=== PATIENT | male | born 1945 | race Caucasian/White ===

== ENCOUNTER 2020-06-21 05:47 | Inpatient (IN) | payer OTHER ==
[2020-06-13 12:07] VITALS: BMI 32.7
--- OUTSIDE RECORDS SUMMARY | 2020-06-21 05:50 | XMS ---
:1945 Author Organization [facility] Support Name Relationship Address Phone RE Unavailable Unavailable Unavailable DAVID LAIRD [address] [place] [address] Re-disclosure Warning The records that you are about to access may contain information from federally- assisted alcohol or drug abuse programs. If such information is present, then the following federally mandated warning applies: This information has been disclosed to you from records protected by federal confidentiality rules (42 CFR part 2). The federal rules prohibit you from making any further disclosure of this information unless further disclosure is expressly permitted by the written consent of the person to whom it pertains or as otherwise permitted by 42 CFR part 2. A general authorization for the release of medical or other information is NOT sufficient for this purpose. The Federal rules restrict any use of the information to criminally investigate or prosecute any alcohol or drug abuse patient.The records that you are about to access may contain highly sensitive health information, the redisclosure of which is protected by Article 27-F of the [facility] Public Health law. If you continue you may haveaccess to information: Regarding HIV / AIDS; Provided by facilities licensed or operated by the [facility] Office of Mental Health; or Provided by the [facility] Office for People With Developmental Disabilities. If such information is present, then the following [facility] mandated warning applies: This information has been disclosed to you from confidential records which are protected by state law. State law prohibits you from making any further disclosure of this information without the specific written consent of the person to whom it pertains, or as otherwise permitted by law. Any unauthorized further disclosure in violation of state law may result in a fine or usp sentence or both. A general authorization for the release of medical or other information is NOT sufficient authorization for further disclosure. Insurance Providers Payer name Policy type Policy ID Covered Covered democrat's Policy P alexander / Coverage democrat ID relationship to [employer] ormation type [employer] H[employer] MEDICARE [id number] 1 Results ID Date Data Source [id number] 06/17/2020 10:45:00 AM EDT [facility] Name Value Range Interpretation Description Data Sup porting Code Source(s) Document(s ) SARS [facility] coronavirus 2 RNA This lab was ordered by NATOINETTE LIAO and reported by [facility]. Procedure
[2020-06-21] MEDS ORDERED: CELECOXIB 200 MG CAPSULE PO ONE (06:29)
[2020-06-21] MEDS ORDERED: TRANEXAMIC ACID 1000 MG/10 ML VIAL IVPUSH ONE (06:29)
[2020-06-21] MEDS ORDERED: CEFAZOLIN 3 GM in DEXTROSE 5%-WATER - 100 ML IVPB ONE (06:29)
[2020-06-21] MEDS ORDERED: CELECOXIB 200 MG CAPSULE ONE (06:39)
[2020-06-21] MEDS ORDERED: VANCOMYCIN 1,000 MG VIAL (RESTRICTED TO ID ONLY) ONE (07:04)
[2020-06-21] MEDS ORDERED: BUPIVACAINE LIPOSOME/PF (EXPAREL) 266 MG/20 ML VIAL ONE (07:05)
[2020-06-21] MEDS ORDERED: BUPIVACAINE HCL/PF 0.5% (5 MG/ML) 30 ML VIAL IJ ONE (07:05)
[2020-06-21] MEDS ORDERED: MIDAZOLAM HCL 2 MG/2 ML SINGLE DOSE VIAL ONE (07:05)
[2020-06-21] MEDS ORDERED: SODIUM CHLORIDE 0.9% P/F 10 ML VIAL IJ ONE (07:05)
[2020-06-21] MEDS ORDERED: BUPIVACAINE HCL/PF 0.5% (5MG/ML) 10 ML VIAL ONE (07:53)
[2020-06-21] MEDS ORDERED: ceFAZolin SODIUM 1 GM VIAL ONE ×4 (07:57→23:35)
[2020-06-21] MEDS ORDERED: ONDANSETRON 4 MG/2 ML VIAL IVPUSH PRN (07:59)
[2020-06-21] MEDS ORDERED: MAG HYDROX/AL HYDROX/SIMETH 30 ML UNIT-DOSE CUP PO PRN (07:59)
[2020-06-21] MEDS ORDERED: MAGNESIUM HYDROX 2400MG/30ML ORAL SUSPENSION 30 ML CUP PO PRN (07:59)
[2020-06-21] MEDS ORDERED: LACTATED RINGERS SOLUTION 1,000 ML IV SCH (08:00)
--- NOTE | 2020-06-21 08:01 | HP ---
[facility]ellite [facility] - Chief Complaint Chief Complaint: right knee pain - Past Medical History Allergies/Adverse Reactions: Allergies Allergy/AdvReac Type Severity Reaction Status Date / Time Penicillins Allergy Severe Low Blood Verified 06/13/20 11:53 Pressure - Current Medications Current Medications: Home Medications Medication Instructions Recorded Aspirin [ASA -] 81 mg PO DAILY 06/13/20 Atorvastatin Ca [Lipitor] 40 mg PO HS 06/13/20 Ferrous Sulfate 325 mg PO DAILY 06/13/20 Lisinopril [Prinivil] 10 mg PO DAILY 06/13/20 Metoprolol Succinate 25 mg PO DAILY 06/13/20 Satellite Physical Exam - Physical Examination Vital Signs: Vital Signs Period Temp Pulse Resp BP Sys/Jennings Pulse Ox Last 24 Hr 98.2 F 60 18 139/76 100 General Appearance: Well Nourished, Well Developed, Alert & Oriented x3 ENT: Clear Lung: Normal air movement Extremities: Other (right knee- + swelling, + ttp, decr rom, nvi, xrays show grade 4 tricompartmental djd) Neurological: Intact, Alert, Oriented Satellite Impression/Plan - Impression/Plan Impression: right knee djd Operative Procedure: right brendon tkr Date to be Performed: 06/21/20
[2020-06-21] MEDS ORDERED: TRANEXAMIC ACID 1000 MG/10 ML VIAL ONE ×2 (08:28→09:43)
[2020-06-21] MEDS ORDERED: VANCOMYCIN 1,000 MG VIAL (RESTRICTED TO ID ONLY) IVPB ONE (10:04)
--- NOTE | 2020-06-21 10:09 | OP ---
Operative Note - Note: Operative Date: 06/21/20 (thai) Pre-Operative Diagnosis: right knee djd Operation: right brendon tkr Post-Operative Diagnosis: Same as Pre-op Surgeon: Esequiel Palacios Chemical Test Engineer: Pa Ramos Anesthesiologist/CROSSING TENDER: Liliana Sandoval Anesthesia: Spinal, Local Specimens Removed: bone fragments Estimated Blood Loss (mls): 200
[2020-06-21] MEDS ORDERED: oxyCODONE HCL 5 MG TABLET ONE (12:33)
[2020-06-21] MEDS ORDERED: oxyCODONE HCL 5 MG TABLET PO PRN ×2 (12:54→14:45)
[2020-06-21] MEDS ORDERED: ACETAMINOPHEN 1000 MG/100 ML VIAL (NON FORMULARY) IVPB PRN (12:55)
[2020-06-21] MEDS ORDERED: oxyCODONE HCL 5 MG TABLET PO ONE (13:00)
[2020-06-21] MEDS: LISINOPRIL 10 MG TABLET PO SCH (13:17)
[2020-06-21] MEDS: FERROUS SO4 325 MG TABLET (FP) PO SCH (13:17)
[2020-06-21] MEDS: MULTIVITAMINS (DAILY MVI) TABLET (FP) PO SCH (13:17)
[2020-06-21] MEDS: SENNOSIDES/DOCUSATE COMBO (SENNA PLUS) TABLET (UD) PO SCH ×2 (13:17→21:29)
[2020-06-21] MEDS: PANTOPRAZOLE 40 MG TABLET PO SCH (13:17)
[2020-06-21] MEDS: metoPROLOL SUCCINATE 25 MG TAB.SR.24H (FP) PO SCH (13:18)
--- NOTE | 2020-06-21 14:40 | SPEC ---
DATE OF OPERATION: 06/21/2020 PREOPERATIVE DIAGNOSIS: Degenerative joint disease, right knee. POSTOPERATIVE DIAGNOSIS: Degenerative joint disease, right knee. PROCEDURE: Right total knee replacement with robotic-assisted navigation (MAKOplasty). SURGICAL ATTENDING: Esequiel Palacios MD BLOCKER AND POLISHER GOLD WHEEL: NILDA Zamora ANESTHESIA: Regional and spinal. CLOSURE: A Triathlon knee system with a 6 femur, 7 tibia, 9 polyethylene TS insert, a 35 patella and a 50 mm extension to the tibial tray, number 1 Vicryl fascia, 0 and 2-0 subcutaneous, 3-0 Monocryl subcuticular with skin glue for skin, 4-0 undyed Vicryl for pin sites. ESTIMATED BLOOD LOSS: Negligible. TOURNIQUET TIME: Approximately 24 minutes. COMPLICATIONS: None. CONDITION: To recovery room in stable condition. DESCRIPTION OF OPERATIVE PROCEDURE: Patient was taken to the operating room on June 21, 2020. Regional and general anesthesia was administered by the anesthesiologist. IV Kefzol and TXA were administered by the anesthesiologist. Well-padded pneumatic tourniquet was placed on the proximal thigh. The right lower extremity was prepped and draped in the usual sterile fashion. The leg was exsanguinated with an Esmarch bandage, and tourniquet was inflated to 275 mmHg. A 12 to 15-cm longitudinal midline incision was incised while centered over the patella. The dissection was carried down to the level of the extensor mechanism with sufficient flaps made to adequately perform the procedure. A medial parapatellar arthrotomy was then performed. We made a cuff of tissue on the patella for later closure. The patella was inverted, the knee was flexed up. The fat pad was excised. The subperiosteal dissection was on the anteromedial proximal tibia around towards the direction of the MCL. The ACL and the PCL were transected and debrided. The meniscal remnants of the medial and lateral meniscus were debrided and removed. This allowed the knee to be able to "be brought forward." The checkpoints were malleted into the tibia and into the femur. Two threaded pins were drilled anteroposteriorly proximal to the knee through the previous incision, through the anterior cortex, then just engaging the posterior cortex. To these pins was assembled the femoral navigation array. One handbreadth below the tibial tubercle, 2 stab incisions were used to drill 2 threaded pins in parallel fashion into the tibia, again through the anterior cortex and just engaging the posterior cortex. To these pins was fastened the tibial arrays. The knee was then registered with the navigation device with center of rotation of the hip, medial and lateral malleoli, both checkpoints, and multiple points on both the femur and the tibia to ensure excellent registration. The navigation device was directed off the "top of the bubbles" on both the femur and the tibia. The navigation passed within less than 0.5 mm to plan. The knee was then thoroughly inspected to remove all osteophytes both medially, laterally, and on the femur and the tibia, and whatever osteophytes were available for dissection. The knee was then taken to extension and to flexion, and stressed in both varus and valgus to assess flexion gaps. The virtual position of the components on the navigation device were then manipulated to optimize the position and to ensure equal gaps in both flexion and extension, and both medially and laterally. The robot was then brought into the field and was registered. The cuts were then made both on the femur and on the tibia as to plan. All osteophytes posteriorly were then removed as well. The gaps were then measured again in flexion and extension to be equal in both flexion and extension and medial and laterally. The femoral notch was then made, as we were doing a posterior stabilizing component, with the appropriate sized box. Trial reduction of the femur achieved excellent [id number] fit. A tibial baseplate of appropriate polyethylene thickness was "floated in the knee." It was ensured to be in the excellent position by navigation devices and was pinned in place. The knee was taken through a range of motion, and found to have excellent stability throughout flexion and extension. The patella was calibrated for thickness and osteotomized down to the appropriate level. The appropriate lollipop was used to drill the lug holes in the patella and the trial button was applied. The knee was taken through a range of motion and found to have excellent tracking of the patella, and patella from full extension to full flexion. Trial components were removed, the keel was punched and drilled, and a sclerotic bone on the tibia was drilled to help with cement interdigitation. The knee was thoroughly irrigated with the pulse antibiotic washer operator. The real components were then cemented in using monitored arrangement cement techniques with antibiotic cement, and pressurization and extension. After the cement was hardened, the knee was thoroughly inspected to remove any extra cement. The real polyethylene component was then clipped into place. Range of motion, stability, and tracking were as described earlier. The checkpoints and the pins were removed. The knee was thoroughly irrigated with antibiotic irrigation. Vancomycin powder was placed into the knee for antibiotic prophylaxis. The medial parapatellar arthrotomy was then closed using number 1 Vicryl interrupted suture. After closure of the deep layer, the knee was taken through a range of motion, and found to have excellent stability of the patella with no dislocation and no undue tension on the repair. The subcutaneous was pulse antibiotic irrigated, and was then closed with 2-0 Vicryl, 3-0 Monocryl subcuticular with the skin glue for the skin. The distal tibial pin site was irrigated thoroughly as well and then closed with 4-0 undyed Vicryl. A sterile Aquacel dressing was applied, followed by a De León dressing. Tourniquet was deflated. Total tourniquet time was approximately 24 minutes. No complications. Patient was awakened from anesthesia and transferred to recovery room in stable condition. Postoperative x-rays revealed excellent position of the components. Morteza [id number]
[2020-06-21] MEDS ORDERED: DEXTROSE 5%-WATER 100 ML IVPB ONE ×2 (14:43→23:35)
[2020-06-21] MEDS ORDERED: HYDROmorphone HCL 0.5 MG/0.5 ML SYRINGE IVPB PRN (14:47)
[2020-06-21] MEDS ORDERED: KETOROLAC TROMETHAMINE 30 MG/1 ML VIAL IVPUSH ONE (15:00)
[2020-06-21] MEDS: CEFAZOLIN 3 GM in DEXTROSE 5%-WATER 100 ML IVPB SCH ×2 (15:34→23:40)
[2020-06-21] MEDS ORDERED: HYDROmorphone HCl 2 MG/ML VIAL IVPB PRN (16:31)
[2020-06-21] MEDS ORDERED: ATORVASTATIN CA 40 MG TABLET (FP) PO SCH (22:00)
[2020-06-21] MEDS: oxyCODONE HCL 5 MG TABLET PO PRN (22:26)
[2020-06-22] MEDS: oxyCODONE HCL 5 MG TABLET PO PRN ×3 (03:16→10:35)
[2020-06-22 06:24] VITALS: BP 147/81; PULSE 76; TEMP 98.3
[2020-06-22] MEDS ORDERED: ASPIRIN 325 MG TABLET PO SCH (08:00)
[2020-06-22 08:55] LABS: HEMATOCRIT 33.9 % (35.4-49); HEMOGLOBIN 11.2 GM/dl (11.7-16.9); MCH 32.5 pg (25.7-33.7); MEAN CELL VOLUME 98.4 fl (80-96); MEAN PLT VOLUME 7.5 fl (7.5-11.1); PLATELET COUNT 251 K/MM3 (134-434); RBC 3.45 M/mm3 (4.00-5.60); WHITE BLOOD COUNT 8.3 K/mm3 (4.0-10.8)
[2020-06-22] MEDS: MULTIVITAMINS (DAILY MVI) TABLET (FP) PO SCH (09:20)
[2020-06-22] MEDS: FERROUS SO4 325 MG TABLET (FP) PO SCH (09:20)
[2020-06-22] MEDS: LISINOPRIL 10 MG TABLET PO SCH (09:20)
[2020-06-22] MEDS: PANTOPRAZOLE 40 MG TABLET PO SCH (09:20)
[2020-06-22] MEDS: metoPROLOL SUCCINATE 25 MG TAB.SR.24H (FP) PO SCH (09:20)
[2020-06-22] MEDS: SENNOSIDES/DOCUSATE COMBO (SENNA PLUS) TABLET (UD) PO SCH (09:20)
--- NOTE | 2020-06-22 09:51 | PN ---
Progress Note (short form) - Note Progress Note: Ortho Pt seen and examined s/p right brendon tkr pod #1 Selected Entries 06/22/20 06:00 Temperature 98.3 F Pulse Rate 76 Respiratory 18 Rate Blood Pressure 147/81 Laboratory Tests 06/22/20 07:25 WBC 8.3 Hgb 11.2 L Hct 33.9 L Plt Count 251 dressing c/d/i, rom 2-50, calf soft ,nt nvi a/p PT dvt ppx pain control d/c home today f/u in 1 week
--- NOTE | 2020-06-22 09:52 | DS ---
Physical Examination Vital Signs: Vital Signs Temperature 98.3 F 06/22/20 06:00 Pulse Rate 76 06/22/20 06:00 Respiratory Rate 18 06/22/20 06:00 Blood Pressure 147/81 06/22/20 06:00 O2 Sat by Pulse Oximetry (%) 98 06/22/20 06:00 Labs: CBC, BMP 06/22/20 07:25 Discharge Summary Problems reviewed: Yes Reason For Visit: OSTEOARTHRITIS Procedures: Principal: right brendon tkr Hospital Course: admitted for elective right brendon tkr, post-op per protocol , stable for d/c Condition: Good - Instructions Diet, Activity, Other Instructions: Post-op Instructions-Total Knee Replacement Call the office for a follow-up appointment in 1 week - [phone] Aspirin 325mg daily for 6 weeks. Pain medication was sent into your pharmacy. Apply Graduated Compression Stockings (TEDs) to both lower extremities- remove daily for hygiene ONLY Apply Sequential Compression Device (SCDs) to both Lower extremities remove for PT and hygiene ONLY Apply cold packs to affected area for 15 minutes every 2 hours. Physical Therapist will come to your home for the first 5 days. You will be set up with outpatient PT at your first post-operative visit. Patient may ambulate as tolerated-encourage self care (at least every 2-3 hours while awake) with walker or cane Maintain Aquacel (waterproof) dressing to operative wound (will be removed by surgeon at first office visit) Shower with Aquacel dressing in place-if Aquacel integrity compromised, remove and apply dry sterile dressing and notify Orthopedist. DO NOT SHOWER unless Orthopedists approves without Aquacel dressing CONTACT THE OFFICE FOR ANY CHANGE IN YOUR CONDITION (for example-fever greater than 102 degrees, excessive bleeding from operative site, purulent drainage, severe swelling or pain) GO TO THE EMERGENCY ROOM IF THERE IS A MEDICAL EMERGENCY Knee Precautions: * Keep a rolled towel under affected heel while in bed or chair (to keep knee in extension) * Keep affected leg elevated except during mealtimes * DO NOT PLACE PILLOW UNDER AFFECTED KNEE * If you have any questions, please do not hesitate to call the office - [phone]. Referrals: Esequiel Palacios MD [Staff Physician] - Disposition: VNS/HOME HEALTH CARE - Home Medications Comprehensive Discharge Medication List: Ambulatory Orders Atorvastatin Ca [Lipitor] 40 mg PO HS 06/13/20 Ferrous Sulfate 325 mg PO DAILY 06/13/20 Lisinopril [Prinivil] 10 mg PO DAILY 06/13/20 Metoprolol Succinate 25 mg PO DAILY 06/13/20 Aspirin [ASA -] 325 mg PO DAILY@0800 tablet 06/21/20 Oxycodone HCl/Acetaminophen [Percocet 5-325 mg Tablet -] 1 - 2 tab PO Q6H #50 tab MDD 8 06/21/20
--- NOTE | 2020-06-22 10:07 | PN ---
Progress Note (short form) - Note Progress Note: Anesthesia postop note 74 y/o M s/p spinal anesthesia/ nerve block for brendon knee. POD#1, vss, aaox3, reports some pain overnight, now in PT. No anesthesia complications.
--- NOTE | 2020-06-23 15:43 | PATH ---
Surgical Pathology Report Patient Name: SHERI LAIRD Med. Rec. #: [id number] /Age/Gender: 1945 (Age: 74) / M Account: [id number] Location: [facility] MED-SURG Taken: 06/21/2020 Received: 06/21/2020 Reported: 06/23/2020 Physicians: Esequiel Palacios M.D. Specimen(s) Received RIGHT KNEE BONES Clinical History Osteoarthritis right knee Final Diagnosis KNEE BONES, RIGHT, TOTAL KNEE REPLACEMENT: DEGENERATIVE JOINT DISEASE. Electronically Signed Idania Combs M.D. Gross Description Received in formalin labeled "right knee bones," is a 12.0 x 11.5 x 2.0 cm aggregate of multiple portions of bone and soft tissue. The tibial plateau measures 8.5 x 6.0 x 1.5 cm. There is a 3.3 cm in greatest dimension area of eburnation present. The remaining articular surfaces are eisenberg-brown and diffusely granular. The underlying trabecular bone is yellow and hard. Piece Goods Clerk sections are submitted in one cassette, following decalcification. 06/22/2020 [facility] [place]06/22/2020
== END 2020-06-22 13:31 | disposition home health service (06) | DRG 470 ==
LOC: FM/S 05:47
PROVIDERS: ADMIT Orthopaedic Surgery; ATTEND Orthopaedic Surgery
PROC: 8E0Y0CZ Robotic Assisted Procedure of Lower Extremity, Open Approach (ICD-10-PCS; 2020-06-21)
PROC: 0SRC0J9 Replacement of Right Knee Joint with Synthetic Substitute, Cemented, Open Approach (ICD-10-PCS; principal; 2020-06-21 08:35)
DX: M17.11 Unilateral primary osteoarthritis, right knee (principal)
CPT/HCPCS: 36415; 73560-TC-RT-FY; 85027; 88304-TC; 88311-TC; 94760; 97010-GP; 97116-GP; 97163-GP; J0131

== ENCOUNTER 2022-07-23 04:21 | Day surgery (SDC) | payer OTHER ==
[2022-07-19 16:26] VITALS: BMI 32.9
[~2022-07-23 04:21] MED LIST: BACITRACIN 15 GM TUBE TOPICAL OINTMENT TP ONE; BUPIVACAINE HCL/PF 0.5% (5MG/ML) 10 ML VIAL IJ ONE
[2022-07-23] MEDS ORDERED: PROPOFOL 20 ML ONE (12:50)
[2022-07-23] MEDS ORDERED: MIDAZOLAM HCL 2 MG/2 ML SINGLE DOSE VIAL ONE (12:50)
[2022-07-23] MEDS ORDERED: LIDOCAINE HCL/PF 2% SDV 5ML VIAL ONE (12:55)
[2022-07-23] MEDS ORDERED: ROCURONIUM BROMIDE 50 MG/5 ML SYRINGE ONE (13:15)
[2022-07-23] MEDS ORDERED: ceFAZolin SODIUM 1 GM VIAL ONE (13:16)
[2022-07-23] MEDS ORDERED: ceFAZolin SODIUM 1 GM VIAL IVPB ONE (13:28)
[2022-07-23] MEDS ORDERED: HYDROmorphone HCl 2 MG/ML VIAL ONE (13:36)
[2022-07-23] MEDS ORDERED: BUPIVACAINE HCL/PF 0.5% (5MG/ML) 10 ML VIAL IJ ONE (14:08)
[2022-07-23] MEDS ORDERED: BACITRACIN 15 GM TUBE TOPICAL OINTMENT TP ONE (14:09)
[2022-07-23] MEDS ORDERED: ACETAMINOPHEN 1000 MG/100 ML BAG IVPB ONE (14:28)
[2022-07-23] MEDS ORDERED: ONDANSETRON 4 MG/2 ML VIAL IVPUSH PRN (14:29)
[2022-07-23 17:26] VITALS: RESP 18
[2022-07-23 17:34] VITALS: BP 126/78; PULSE 82; TEMP 97.8
== END 2022-07-23 17:12 | disposition home or self-care (01) ==
LOC: JASU-SURG 04:21
PROVIDERS: ATTEND Urology
PROC: 0VTTXZZ Resection of Prepuce, External Approach (ICD-10-PCS; principal; 2022-07-23 12:00)
PROC: 0VQ50ZZ Repair Scrotum, Open Approach (ICD-10-PCS; 2022-07-23 12:00)
DX: N48.83 Acquired buried penis (principal)
CPT/HCPCS: 94760